=== PATIENT | female | born 1980 | race Caucasian/White ===

== ENCOUNTER 2016-09-20 10:01 | Emergency (ER) | payer BC, SELFPAY ==
[2016-09-20 12:12] LABS: BUN/CREATININE RATIO 15 (0-10)
[2016-09-20 12:20] LABS: HEMOGLOBIN 13.8 gm/dl (12.3-15.3); RED BLOOD COUNT 4.46 M/UL (4.00-5.10); WHITE BLOOD COUNT 7.7 K/UL (4.5-11.0)
== END 2016-09-20 16:50 | disposition home or self-care (01) ==
LOC: ER1 10:01
PROVIDERS: Emergency Medicine
DX: N93.8 Other specified abnormal uterine and vaginal bleeding (principal); N30.01 Acute cystitis with hematuria; E03.9 Hypothyroidism, unspecified; F41.9 Anxiety disorder, unspecified; Z87.891 Personal history of nicotine dependence; Z79.899 Other long term (current) drug therapy; Z88.0 Allergy status to penicillin; Z88.8 Allergy status to other drugs, medicaments and biological substances
CPT/HCPCS: 36415; 70450; 80053; 81001; 84703; 85025; 85610; 85730; 87210; 96360; 99284

== ENCOUNTER → 2016-10-25 | Outpatient (CLI) | payer BC, SELFPAY ==
[~2016-10-25] MED LIST: CIPRO500 MG PO; CLEOCIN 150MG150 MG PO; FLAGYL500 MG PO; FLEXERIL 10 MG10 MG PO; HYDROXYZINE HCL10 MG PO; HYDROXYZINE HCL50 MG PO; IBUPROFEN400 MG PO; IBUPROFEN800 MG PO; LEVAQUIN500 MG PO; LORTAB 5-325 M1 EACH PO; NAPROXEN 250 M250 MG PO; NEXIUM20 MG PO; NEXIUM40 MG PO; NORCO 7.5-3251 EACH PO; NYSTATIN100000 UNI PO; SYNTHROID50 MCG PO; SYNTHROID88 MCG PO; VITAMIN D50000 UNIT PO
== END ==
LOC: ECHO 10:54 → HEART 5 11-01 14:00
DX: R07.9 Chest pain, unspecified (principal)
CPT/HCPCS: ECHO; 93306

== ENCOUNTER → 2016-10-30 | Outpatient (CLI) | payer BC ==
[2016-10-30 08:47] LABS: HEMOGLOBIN 13.9 gm/dl (12.3-15.3); RED BLOOD COUNT 4.55 M/UL (4.00-5.10); WHITE BLOOD COUNT 6.4 K/UL (4.5-11.0)
[2016-10-30 09:01] LABS: BUN/CREATININE RATIO 15 (0-10)
== END ==
LOC: OPSV2 08:00
PROVIDERS: Family Medicine; Obstetrics & Gynecology
DX: Z01.812 Encounter for preprocedural laboratory examination (principal); R10.2 Pelvic and perineal pain; E55.9 Vitamin D deficiency, unspecified; Z88.5 Allergy status to narcotic agent; Z88.0 Allergy status to penicillin; Z88.3 Allergy status to other anti-infective agents; Z88.8 Allergy status to other drugs, medicaments and biological substances; Z01.818 Encounter for other preprocedural examination
CPT/HCPCS: 36415; 80053; 81001; 85025

== ENCOUNTER 2016-10-31 05:59 | Day surgery (SDC) | payer BC, OTHER ==
[~2016-10-31] VITALS: Ht 172.7 cm; Wt 76.2 kg
[2016-10-31] MEDS ORDERED: IBUPROFEN400 MG PO (07:11)
[2016-10-31] MEDS ORDERED: VITAMIN D50000 UNIT PO (07:12)
[2016-10-31] MEDS ORDERED: HYDROXYZINE HCL10 MG PO (07:13)
[2016-10-31] MEDS ORDERED: NEXIUM40 MG PO (07:13)
[2016-10-31] MEDS ORDERED: SYNTHROID88 MCG PO (07:14)
[2016-11-01 07:02] LABS: HEMOGLOBIN 11.6 gm/dl (12.3-15.3)
[2016-11-01 07:21] LABS: BUN/CREATININE RATIO 10 (0-10)
[2016-11-01] MEDS ORDERED: NORCO 7.5-3251 EACH PO (10:29)
[2016-11-01] MEDS ORDERED: FLEXERIL 10 MG10 MG PO (10:32)
[2016-11-01] MEDS ORDERED: NAPROXEN 250 M250 MG PO (10:34)
== END 2016-11-01 10:58 | disposition home or self-care (01) ==
LOC: OR 05:59 → OB 11:33 → OR 11-01 10:58
PROVIDERS: Obstetrics & Gynecology
PROC: 0UT04ZZ Resection of Right Ovary, Percutaneous Endoscopic Approach (ICD-10-PCS; 2016-10-31)
PROC: 0UT74ZZ Resection of Bilateral Fallopian Tubes, Percutaneous Endoscopic Approach (ICD-10-PCS; 2016-10-31)
PROC: 0UT94ZZ Resection of Uterus, Percutaneous Endoscopic Approach (ICD-10-PCS; principal; 2016-10-31 08:00)
PROC: 0UTC4ZZ Resection of Cervix, Percutaneous Endoscopic Approach (ICD-10-PCS; 2016-10-31 08:00)
DX: N72 Inflammatory disease of cervix uteri (principal); N80.0 Endometriosis of uterus; N92.0 Excessive and frequent menstruation with regular cycle; N73.6 Female pelvic peritoneal adhesions (postinfective); K21.9 Gastro-esophageal reflux disease without esophagitis; E16.2 Hypoglycemia, unspecified; G43.909 Migraine, unspecified, not intractable, without status migrainosus; M19.90 Unspecified osteoarthritis, unspecified site; M54.9 Dorsalgia, unspecified; F41.9 Anxiety disorder, unspecified; Z82.49 Family history of ischemic heart disease and other diseases of the circulatory system; Z83.3 Family history of diabetes mellitus; Z87.891 Personal history of nicotine dependence; Z79.899 Other long term (current) drug therapy; Z90.49 Acquired absence of other specified parts of digestive tract; Z98.890 Other specified postprocedural states
CPT/HCPCS: 36415; 80048; 85014; 85018; 96361; 96374; 96375; C1769; J1100; J1580; J2250; J2270; J2405; J2710; J2795; J3010; J7120

== ENCOUNTER 2016-11-09 20:25 | Emergency (ER) | payer BC ==
[~2016-11-09 20:25] MED LIST changes: -CIPRO500 MG PO; -CLEOCIN 150MG150 MG PO; -FLAGYL500 MG PO; -HYDROXYZINE HCL50 MG PO; -IBUPROFEN800 MG PO; -LEVAQUIN500 MG PO; -LORTAB 5-325 M1 EACH PO; -NEXIUM20 MG PO; -NYSTATIN100000 UNI PO; -SYNTHROID50 MCG PO
== END 2016-11-10 00:21 | disposition left against medical advice (07) ==
LOC: ER1 20:25
DX: Z53.21 Procedure and treatment not carried out due to patient leaving prior to being seen by health care provider (principal)
CPT/HCPCS: 81001

== ENCOUNTER 2016-11-13 18:32 | Inpatient (IN) | payer BC ==
[~2016-11-13] VITALS: Ht 170.2 cm; Wt 75.8 kg
[2016-11-13] MEDS ORDERED: IBUPROFEN800 MG PO (21:52)
[2016-11-13] MEDS ORDERED: NEXIUM20 MG PO (21:56)
[2016-11-13] MEDS ORDERED: HYDROXYZINE HCL50 MG PO (21:56)
[2016-11-13] MEDS ORDERED: SYNTHROID50 MCG PO (21:57)
[2016-11-13] MEDS ORDERED: FLAGYL500 MG PO (21:57)
[2016-11-13] MEDS ORDERED: LEVAQUIN500 MG PO (21:57)
[2016-11-13 22:15] LABS: HEMOGLOBIN 11.7 gm/dl (12.3-15.3); RED BLOOD COUNT 3.82 M/UL (4.00-5.10); WHITE BLOOD COUNT 16.8 K/UL (4.5-11.0)
[2016-11-13 22:35] LABS: BUN/CREATININE RATIO 14 (0-10)
[2016-11-14 12:24] LABS: HEMOGLOBIN 10.9 gm/dl (12.3-15.3); RED BLOOD COUNT 3.64 M/UL (4.00-5.10); WHITE BLOOD COUNT 13.1 K/UL (4.5-11.0)
[2016-11-14] MEDS ORDERED: NYSTATIN100000 UNI PO (21:55)
[2016-11-15 06:01] LABS: HEMOGLOBIN 10.4 gm/dl (12.3-15.3); RED BLOOD COUNT 3.45 M/UL (4.00-5.10); WHITE BLOOD COUNT 12.2 K/UL (4.5-11.0)
[2016-11-15 06:22] LABS: BUN/CREATININE RATIO 8 (0-10)
[2016-11-16 06:05] LABS: HEMOGLOBIN 10.3 gm/dl (12.3-15.3); RED BLOOD COUNT 3.41 M/UL (4.00-5.10); WHITE BLOOD COUNT 9.5 K/UL (4.5-11.0)
[2016-11-16 06:23] LABS: BUN/CREATININE RATIO 6 (0-10)
[2016-11-17 04:41] LABS: BUN/CREATININE RATIO 10 (0-10)
[2016-11-17] MEDS ORDERED: CLEOCIN 150MG150 MG PO (11:43)
[2016-11-17] MEDS ORDERED: CIPRO500 MG PO (11:43)
[2016-11-17] MEDS ORDERED: LORTAB 5-325 M1 EACH PO (11:44)
== END 2016-11-17 12:45 | disposition home or self-care (01) | DRG 858 ==
LOC: M/S 20:11
PROVIDERS: ADMIT Obstetrics & Gynecology
PROC: 0U9G7ZZ Drainage of Vagina, Via Natural or Artificial Opening (ICD-10-PCS; principal; 2016-11-15 07:45)
PROC: 0TJB8ZZ Inspection of Bladder, Via Natural or Artificial Opening Endoscopic (ICD-10-PCS; 2016-11-15 07:45)
DX: T81.4XXA Infection following a procedure, initial encounter (principal); N73.9 Female pelvic inflammatory disease, unspecified; N76.0 Acute vaginitis; B95.2 Enterococcus as the cause of diseases classified elsewhere; N83.202 Unspecified ovarian cyst, left side; E07.9 Disorder of thyroid, unspecified; K21.9 Gastro-esophageal reflux disease without esophagitis; K44.9 Diaphragmatic hernia without obstruction or gangrene; Z87.891 Personal history of nicotine dependence; Z79.1 Long term (current) use of non-steroidal anti-inflammatories (NSAID); Z79.899 Other long term (current) drug therapy; Z88.8 Allergy status to other drugs, medicaments and biological substances; Z88.3 Allergy status to other anti-infective agents; Z91.040 Latex allergy status; Z88.5 Allergy status to narcotic agent; Z88.0 Allergy status to penicillin; Z91.013 Allergy to seafood; Z90.710 Acquired absence of both cervix and uterus; Z90.721 Acquired absence of ovaries, unilateral; Z90.79 Acquired absence of other genital organ(s); Z90.49 Acquired absence of other specified parts of digestive tract; Z98.890 Other specified postprocedural states; Z83.3 Family history of diabetes mellitus; Z82.49 Family history of ischemic heart disease and other diseases of the circulatory system
CPT/HCPCS: 36415; 80048; 80053; 80170; 81001; 85027; 87040; 87070; 87077; 87086; 87186; 87205; C1769; J1580; J2250; J2405; J2795; J7030; J7050; J7120; Q0177

== ENCOUNTER → 2020-08-19 | Outpatient (CLI) | payer OTHER ==
[~2020-08-19] MED LIST changes: +CIPRO500 MG PO; +CLEOCIN 150MG150 MG PO; +FLAGYL500 MG PO; +HYDROXYZINE HCL50 MG PO; +IBUPROFEN600 MG PO; +IBUPROFEN800 MG PO; +LEVAQUIN500 MG PO; +LODINE CAP 300300 MG PO; +LORTAB 5-325 M1 EACH PO; +MEDROL4 MG PO; +NEXIUM20 MG PO; +NYSTATIN100000 UNI PO; +SYNTHROID50 MCG PO
[2020-08-19 07:54] LABS: HEMOGLOBIN 14.5 gm/dl (12.3-15.3); RED BLOOD COUNT 4.45 M/UL (4.00-5.10); WHITE BLOOD COUNT 7.1 K/UL (4.5-11.0)
[2020-08-19 08:20] LABS: BUN/CREATININE RATIO 19 (0-10)
== END ==
LOC: LAB 07:24
PROVIDERS: Family Medicine
DX: E03.9 Hypothyroidism, unspecified (principal); K21.9 Gastro-esophageal reflux disease without esophagitis; Z79.899 Other long term (current) drug therapy
CPT/HCPCS: 36415; 80053; 80061; 82607; 83735; 84439; 84443; 85027

== ENCOUNTER → 2021-01-10 | Outpatient (CLI) | payer OTHER ==
[2021-01-10 08:54] LABS: BUN/CREATININE RATIO 16 (0-10)
== END ==
LOC: LAB 07:40
PROVIDERS: Family Medicine
DX: E03.9 Hypothyroidism, unspecified (principal); E55.9 Vitamin D deficiency, unspecified; K21.9 Gastro-esophageal reflux disease without esophagitis; Z79.899 Other long term (current) drug therapy
CPT/HCPCS: 36415; 80053; 82607; 83735; 84439; 84443

== ENCOUNTER 2021-12-18 23:25 | Emergency (ER) | payer OTHER ==
[2021-12-19] MEDS ORDERED: IBUPROFEN600 MG PO (00:12)
== END 2021-12-19 00:35 | disposition home or self-care (01) ==
LOC: ER1 23:25
DX: S93.402A Sprain of unspecified ligament of left ankle, initial encounter (principal); F17.200 Nicotine dependence, unspecified, uncomplicated; Z88.0 Allergy status to penicillin; W19.XXXA Unspecified fall, initial encounter
CPT/HCPCS: 73610; 73630; 99283